=== PATIENT | male | born 1950 | race Caucasian/White ===

== ENCOUNTER → 2016-08-26 | Outpatient (CLI) | payer BC, MEDICARE, OTHER ==
[~2016-08-26] MED LIST: ADVIN25/60 INH; CETI5TAB5 PO; CHOL100027 PO; MELO15TA4 PO; MOME100A INH; MONT1TAB3 PO; MULTLIQ26 PO; OMEP40CA41 PO; RANI300T2 PO; TAMS0.4C38 PO; VYT1020 PO
[2016-08-26 18:16] LABS: BLOOD UREA NITROGEN 19 mg/dl (7-18); BUN/CREATININE RATIO 15.9 (10-20); CALCIUM 9.1 mg/dl (8.5-10.1); CARBON DIOXIDE 30 mmol/L (21-32); CHLORIDE 104 mmol/L (98-107); GLUCOSE 78 mg/dl (70-99); PHOSPHORUS 3.5 mg/dl (2.5-4.9); SODIUM 142 mmol/L (136-145)
[2016-08-27 06:09] LABS: ESTIMATED AVERAGE GLUCOSE 103 mg/dl; HA1C FLAG Normal (Normal)
== END | disposition home or self-care (01) ==
LOC: C.LABMFLN 10:15
PROVIDERS: ATTEND Family Medicine
DX: Z11.59 Encounter for screening for other viral diseases (principal); E11.9 Type 2 diabetes mellitus without complications

== ENCOUNTER → 2017-03-01 | Outpatient (CLI) | payer OTHER ==
[2017-03-01 13:05] LABS: BASO % 0.9 %; BASO ABS # 0.05 K/uL (0-0.2); COMPLETE YES; EOS % 2.1 %; HEMATOCRIT 39.7 % (42-52); IG% 0.4 %; LYMPH % 32.5 %; LYMPH ABS # 1.84 K/uL (1.2-3.4); MEAN CELL VOLUME 89.4 fL (80-100); MEAN CORPUSCULAR HEMOGLOBIN 30.9 pg (25-34); MEAN CORPUSCULAR HGB CONC 34.5 g/dl (32-36); MEAN PLATELET VOLUME 11.3 fL (7.4-10.4); MONO % 12.9 %; NEUT % 51.2 %; PLATELET COUNT 174 K/uL (130-400); RED BLOOD COUNT 4.44 M/uL (4.7-6.1); WHITE BLOOD COUNT 5.67 K/uL (4.8-10.8)
[2017-03-01 13:42] LABS: ALT/SGPT 24 U/L (12-78); AST/SGOT 19 U/L (15-37); BLOOD UREA NITROGEN 17 mg/dl (7-18); BUN/CREATININE RATIO 14.5 (10-20); CALCIUM 8.6 mg/dl (8.5-10.1); CARBON DIOXIDE 28 mmol/L (21-32); CHLORIDE 107 mmol/L (98-107); GLUCOSE 85 mg/dl (70-99); SODIUM 142 mmol/L (136-145)
[2017-03-01 13:50] LABS: ALB/GLOB RATIO 1.2 (0.9-2); ALKALINE PHOSPHATASE 81 U/L (45-117); CHOLESTEROL 162 mg/dl (0-200); HDL CHOLESTEROL 54 mg/dl; LDL CHOLESTEROL CALCULATED 95 mg/dl; PROSTATE SPECIFIC ANTIGEN 0.614 ng/ml (0.000-4.000); TRIGLYCERIDES 65 mg/dl (0-150); VERY LOW DENSITY LIPOPROT CALC 13 mg/dl
[2017-03-01 14:00] LABS: ESTIMATED AVERAGE GLUCOSE 105 mg/dl; HA1C FLAG Normal (Normal)
== END | disposition home or self-care (01) ==
LOC: C.LABMFLN 10:46
PROVIDERS: ATTEND Family Medicine
DX: E11.9 Type 2 diabetes mellitus without complications (principal); N40.0 Benign prostatic hyperplasia without lower urinary tract symptoms; E78.5 Hyperlipidemia, unspecified

== ENCOUNTER → 2017-06-14 | Outpatient (CLI) | payer OTHER ==
[2017-06-14 12:53] LABS: BASO % 0.7 %; BASO ABS # 0.04 K/uL (0-0.2); COMPLETE YES; HEMATOCRIT 41.1 % (42-52); IG% 0.3 %; LYMPH % 27.1 %; LYMPH ABS # 1.63 K/uL (1.2-3.4); MEAN CELL VOLUME 88.2 fL (80-100); MEAN CORPUSCULAR HEMOGLOBIN 29.8 pg (25-34); MEAN CORPUSCULAR HGB CONC 33.8 g/dl (32-36); MEAN PLATELET VOLUME 11.5 fL (7.4-10.4); MONO % 15.8 %; NEUT % 54.1 %; PLATELET COUNT 187 K/uL (130-400); RED BLOOD COUNT 4.66 M/uL (4.7-6.1); WHITE BLOOD COUNT 6.01 K/uL (4.8-10.8)
[2017-06-14 13:09] LABS: ESTIMATED AVERAGE GLUCOSE 103 mg/dl; HA1C FLAG Normal (Normal)
== END | disposition home or self-care (01) ==
LOC: C.LABMFLN 10:50
PROVIDERS: ATTEND Family Medicine
DX: E11.9 Type 2 diabetes mellitus without complications (principal)

== ENCOUNTER → 2017-09-20 | Outpatient (CLI) | payer OTHER ==
[2017-09-20 13:10] LABS: HEMOGLOBIN A1C 5.3 % (4.5-5.6)
== END | disposition home or self-care (01) ==
LOC: C.LABMFLN 10:35
PROVIDERS: ATTEND Family Medicine
DX: E11.9 Type 2 diabetes mellitus without complications (principal)

== ENCOUNTER → 2017-12-26 | Outpatient (CLI) | payer OTHER ==
[~2017-12-26] MED LIST changes: +MELO-84 PO; -MELO15TA4 PO
[2017-12-26 13:30] LABS: HEMOGLOBIN A1C 5.4 % (4.5-5.6)
[2017-12-26 13:44] LABS: ALBUMIN 3.8 gm/dl (3.4-5.0); BLOOD UREA NITROGEN 22 mg/dl (7-18); CALCIUM 8.6 mg/dl (8.5-10.1); CARBON DIOXIDE 27 mmol/L (21-32); GLUCOSE 93 mg/dl (70-99); POTASSIUM 3.9 mmol/L (3.5-5.1); SODIUM 139 mmol/L (136-145)
[2017-12-26 13:47] LABS: CHOLESTEROL 181 mg/dl (0-200); LDL CHOLESTEROL CALCULATED 120 mg/dl; PHOSPHORUS 2.7 mg/dl (2.5-4.9)
== END | disposition home or self-care (01) ==
LOC: C.LABMFLN 10:20
PROVIDERS: ATTEND Family Medicine
DX: E11.9 Type 2 diabetes mellitus without complications (principal); E78.5 Hyperlipidemia, unspecified

== ENCOUNTER 2019-09-26 12:09 | Observation (INO) ==
[2019-09-26] MEDS ORDERED: KETOROLAC TROMETHAMINE 60 MG/2 ML VIAL IM STA (13:13)
[2019-09-26] MEDS ORDERED: LIDOCAINE 5% 1 PATCH TD STA ×2 (13:13→13:16)
[2019-09-26] MEDS ORDERED: KETOROLAC 30 MG/ML VIAL ONE (13:28)
--- NOTE | 2019-09-26 14:24 | XRay Report ---
XR knee LT 3V CLINICAL HISTORY: recent injury, lateral joint line pain COMPARISON: Left knee radiographs September 23, 2019. FINDINGS: There has been interval development of a moderate to large left knee joint effusion. No ac chester fracture is identified. Severe osteoarthritis within the patellofemoral compartment is noted. The re is mild osteophytosis within the medial and lateral compartments. IMPRESSION: 1. Interval development of a moderate to large left knee joint effusion. 2. No acute fracture identified. 3. Severe osteoarthritis within the patellofemoral compartment. ACT 112: Negative or not required by law. Electronically signed by: Quoc Scott M.D. 09/26/2019 2:22 PM
--- NOTE | 2019-09-26 14:25 | XRay Report ---
XR knee RT 3V CLINICAL HISTORY: anterior joint line pain COMPARISON: None FINDINGS: A large right knee joint effusion is noted without evidence for lipohemarthrosis. No acute fracture is identified. There is severe osteoarthritis within the patellofemoral compartment of the right knee. No osseous lesion is noted. IMPRESSION: 1. No acute fracture identified. 2. Large right knee joint effusion. 3. Severe osteoarthritis within the patellofemoral compartment. ACT 112: Negative or not required by law. Electronically signed by: Quoc Scott M.D. 09/26/2019 2:24 PM
--- NOTE | 2019-09-26 16:11 | Emergency Department Note ---
Entered by Asia Jacobson acting as a scribe for History of Present Illness General Chief complaint: Knee Injury/Pain Stated complaint: knee pain Time Seen by Provider: 09/26/19 12:55 Source: patient History of Present Illness Provider complaint: Knee Injury/Pain Onset (ago): day(s) 1 Location: lower extremity (Knee), left and right Maximum Pain Intensity: 3 Relieved By: + none Exacerbated By: + movement Associated symptoms: no cough and no fever/chills The patient is a 69 year old male w/ PMHx of sinus surgery, ventral hernia repair, cholecystectomy, tonsillectomy, hyperlipidemia, diabetes, asthma, lumbar discectomy, and appendectomy who presents to the ED w/ CC of bilateral knee injury/pain beginning yesterday. The patient states that his pain is exacerbated by movement and not relieved by anything specific. The patient denies experiencing a cough or fever/chills. The patient notes that his knee was sore 1 week ago and carrying laundry down the stairs and getting up out of his recliner caused issues with his knees. Home Medications Home Medications Medication Instructions Recorded Confirmed Type fexofenadine 180 mg tablet 180 mg PO QAM 08/27/19 09/26/19 History acetaminophen [Tylenol Extra 500 mg PO Q6H PRN 09/26/19 09/26/19 History Strength] ascorbic acid (vitamin C) 250 mg PO QAM 09/26/19 09/26/19 History cholecalciferol (vitamin D3) 2,000 unit PO QAM 09/26/19 09/26/19 History [Vitamin D3] cyanocobalamin (vitamin B-12) 1,000 mcg PO QAM 09/26/19 09/26/19 History montelukast 10 mg PO QAM 09/26/19 09/26/19 History multivitamin [Multiple Vitamins] 1 tab PO QAM 09/26/19 09/26/19 History omeprazole 20 mg PO QAM 09/26/19 09/26/19 History tamsulosin 0.4 mg PO QAM 09/26/19 09/26/19 History Allergies Allergy/AdvReac Type Severity Reaction Status Date / Time acetaminophen Allergy Unknown unkn Verified 09/26/19 14:16 carisoprodol Allergy Unknown UNKN Verified 09/26/19 14:16 codeine Allergy Unknown unkn Verified 09/26/19 14:16 erythromycin base Allergy Unknown unkn Verified 09/26/19 14:16 hydrocodone Allergy Unknown unkn Verified 09/26/19 14:16 levalbuterol Allergy Unknown UNKN Verified 09/26/19 14:16 meperidine Allergy Unknown UNKN Verified 09/26/19 14:16 Penicillins Allergy Unknown unkn Verified 09/26/19 14:16 pentazocine Allergy Unknown unkn Verified 09/26/19 14:16 tramadol [From Ultracet] Allergy Verified 09/26/19 14:16 Past Med/Surg History Medical History (Updated 09/27/19 @ 04:26 by Tom Blackburn MD) Acid reflux disease (Chronic) Adenomatous colon polyp (Chronic) Allergic rhinitis (Chronic) Asthma (Chronic) Benign localized hyperplasia of prostate without urinary obstruction (Chronic) Diabetes mellitus (Chronic) Hyperlipidemia (Chronic) Kidney stones (Chronic) Obstructive sleep apnea (Chronic) Posterior vitreous detachment Vitamin B12 deficiency Surgical History H/O lumbar discectomy (Chronic) H/O nephrostomy (Chronic) H/O sinus surgery (Chronic) H/O ventral hernia repair (Chronic) S/P appendectomy (Chronic) S/P cholecystectomy (Chronic) S/P colonoscopy (Chronic) S/P tonsillectomy (Chronic) Status post vasectomy (Chronic) Family History Mother Hypertension Hypercholesteremia Melanoma Stroke Sister Hypertension Melanoma Father Lung cancer Melanoma Malignant neoplasm of thyroid gland Social History Preferred Language: Telugu Communication Ability: Effective Communication Ability Comment: patient only has the ability to hear out of his right ear Visual Impairment: Limited Hearing Ability: Hard of Hearing Telephone Service Adviser Required: No Beliefs That Will Affect Care: None marital status: Current Living Situation: Spouse current occupational status: retired Other Information That Helps Us Care for You: No Feels Safe at Home: Yes Safety Concerns: Feels Safe At This Time Smoking Status: Never smoker Do You Dip or Chew Tobacco: No ; Second Hand Exposure: No ; Tobacco Cessation Education Requested by Patient: No Hx Alcohol Use: No Hx Substance Use: No Childhood Exposure to Second-Hand Smoke: Yes caffeine: Yes (coffee, diet soda) Dental Care, Regularly: No Physical Activity Frequency: Daily Seatbelt Use: always Sunscreen Use: No Do you think of yourself as: straight/heterosexual Review of Systems See HPI for pertinent positives & negatives. and A total of 6 systems reviewed and were otherwise negative Physical Exam Vital Signs Vital Signs - 24 hr 09/26/19 13:36 09/26/19 17:00 09/26/19 18:49 Pulse Rate [Finger] 78 81 74 Respiratory Rate 20 18 17 Blood Pressure [Right Arm] 129/74 125/79 146/80 H Blood Pressure Mean [Right Arm] 92 94 102 Pulse Oximetry 96 97 97 Oxygen Delivery Method Room Air Room Air Room Air GENERAL: Well appearing, well nourished, NAD, non-toxic. EYE EXAM: Normal conjunctiva. PERRL, no anisocoria and EOM's grossly intact w/o pain. OROPHARYNX: Moist mucous membranes. Grossly normal dentition. NECK: Supple, no nuchal rigidity, no adenopathy, non-tender. No signs of meningismus. LUNGS: Clear to auscultation. Normal chest wall mechanics. HEART: NSR, no MRG. ABDOMEN: Abdomen soft, non-tender, normo-active bowel sounds, no masses, no rebound or guarding. BACK: No CVA TTP. SKIN: No rashes and no bruising. UPPER EXTREMITIES: Upper extremities are grossly normal. LOWER EXTREMITIES: No pitting edema. No calf pain. Pain with varus stress for left knee. Pain with valgus stress for right knee. Possible Matt positive for left knee. Bilateral knee effusions. Decreased ROM secondary to pain. NVI distally bilaterally. Good pedal pulses. NEURO EXAM: A&O x3, cranial nerves II-XII grossly intact, normal speech, moves all 4 extremities on command w/o issue. Course Course 1302: Past medical records reviewed. The patient was evaluated in room A12B. A complete history and physical exam was performed. 1304: Continuous Cardiac Monitoring: An order was placed for continuous cardiac monitoring. The monitor shows a rate of 78 with sinus rhythm. 1620: I spoke with Dr. Montez- Orthopedic Surgery about the patient's case and he said to have the patient call first thing tomorrow and he should be able to see the patient. 1657: I reevaluated the patient and he does not think he can go home and [facility] did not accept him. 1708: I spoke with Dr. Vega- Hospitalist about the patient's case and he will accept the patient for further evaluation. 1709: I spoke with Dr. Montez- Orthopedic Surgery about the patient's treatment plan and he will see him in the office and provide the patient with rehab facility recommendations. 1838: I reevaluated the patient and updated him. Administered Medications Ascorbic Acid (Vitamin C) 250 mg PO QAM [facility] Stop: 10/27/19 08:59 Last Admin: 09/27/19 08:46 Dose: Not Given Documented by: [id number] Cyanocobalamin (Vitamin B-12) 1,000 mcg PO QAM [facility] Stop: 10/27/19 08:59 Last Admin: 09/27/19 08:46 Dose: Not Given Documented by: [id number] Fexofenadine HCl (Michelle) 180 mg PO QAM [facility] Stop: 10/27/19 08:59 Last Admin: 09/27/19 08:45 Dose: Not Given Documented by: [id number] Lidocaine (Lidoderm 5%) 1 patch TD DAILY [facility] Stop: 10/27/19 08:59 Last Admin: 09/27/19 08:48 Dose: 1 patch Documented by: [id number] Miscellaneous (Remove Lidoderm Patch) 1 ea N/A DAILY@2100 [facility] Stop: 10/26/19 20:59 Last Admin: 09/26/19 23:30 Dose: 1 ea Documented by: [id number] Montelukast Sodium (Singulair) 10 mg PO QAM [facility] Stop: 10/27/19 08:59 Last Admin: 09/27/19 08:46 Dose: Not Given Documented by: [id number] Multivitamins (Multivitamin Tab) 1 tab PO QAM [facility] Stop: 10/27/19 08:59 Last Admin: 09/27/19 08:46 Dose: Not Given Documented by: [id number] Pantoprazole Sodium (Protonix) 40 mg PO QAM [facility] Stop: 10/27/19 08:59 Last Admin: 09/27/19 08:46 Dose: Not Given Documented by: [id number] Tamsulosin HCl (Flomax) 0.4 mg PO QAM [facility] Stop: 10/27/19 08:59 Last Admin: 09/27/19 08:46 Dose: Not Given Documented by: [id number] Tramadol HCl (Ultram) 50 mg PO Q4H PRN PRN Reason: Moderate Pain Stop: 10/26/19 20:53 Last Admin: 09/26/19 23:37 Dose: 50 mg Documented by: [id number] Vitamin D (Vitamin D3) 2,000 units PO QAM [facility] Stop: 10/27/19 08:59 Last Admin: 09/27/19 08:46 Dose: Not Given Documented by: [id number] Discontinued Medications Acetaminophen (Tylenol) 1,000 mg PO NOW STA Stop: 09/26/19 18:37 Last Admin: 09/26/19 18:48 Dose: 1,000 mg Documented by: [id number] Sodium Chloride (Nss) 500 mls @ 125 mls/hr IV .Q4H [facility] Stop: 10/26/19 18:44 Last Admin: 09/27/19 01:56 Dose: Not Given Documented by: [id number] Infusion: 09/26/19 21:43 Dose: 0 mls/hr Documented by: [id number] Admin: 09/26/19 18:48 Dose: 125 mls/hr Documented by: [id number] Ketorolac Tromethamine (Toradol) 30 mg IM NOW STA Stop: 09/26/19 13:14 Last Admin: 09/26/19 13:32 Dose: Not Given Documented by: [id number] Ketorolac Tromethamine (Toradol) Confirm Administered Dose 30 mg .ROUTE .STK-MED ONE Stop: 09/26/19 13:29 Last Admin: 09/26/19 13:31 Dose: 30 mg Documented by: [id number] Ketorolac Tromethamine (Toradol) 30 mg IV NOW STA Stop: 09/26/19 18:35 Last Admin: 09/26/19 18:48 Dose: 30 mg Documented by: [id number] Lidocaine (Lidoderm 5%) 1 patch TD NOW STA Stop: 09/26/19 13:14 Last Admin: 09/26/19 13:31 Dose: 1 patch Documented by: [id number] Lidocaine (Lidoderm 5%) 1 patch TD NOW STA Stop: 09/26/19 13:17 Last Admin: 09/26/19 13:32 Dose: 1 patch Documented by: [id number] Miscellaneous (Remove Lidoderm Patch) 1 ea N/A DAILY@2100 [facility] Stop: 10/26/19 20:59 Last Admin: 09/27/19 01:56 Dose: Not Given Documented by: [id number] Medical Decision Making Differential Diagnosis Differential diagnoses include but are not limited to: fracture, dislocation, contusion, strain, ligamentous injury, tendon rupture, and septic joint. Medical Records Attestation: I reviewed the patient's medical records. Home Medications Current Medication List: was personally reviewed by me Imaging Data Radiologist's Impression: Radiology results as stated below per my review and the radiologist's interpretation: XR knee LT 3V CLINICAL HISTORY: recent injury, lateral joint line pain COMPARISON: Left knee radiographs September 23, 2019. FINDINGS: There has been interval development of a moderate to large left knee joint effusion. No acute fracture is identified. Severe osteoarthritis within the patellofemoral compartment is noted. There is mild osteophytosis within the medial and lateral compartments. IMPRESSION: 1. Interval development of a moderate to large left knee joint effusion. 2. No acute fracture identified. 3. Severe osteoarthritis within the patellofemoral compartment. ACT 112: Negative or not required by law. Electronically signed by: Quoc Scott M.D. 09/26/2019 2:22 PM XR knee RT 3V CLINICAL HISTORY: anterior joint line pain COMPARISON: None FINDINGS: A large right knee joint effusion is noted without evidence for lipohemarthrosis. No acute fracture is identified. There is severe osteoarthritis within the patellofemoral compartment of the right knee. No osseous lesion is noted. IMPRESSION: 1. No acute fracture identified. 2. Large right knee joint effusion. 3. Severe osteoarthritis within the patellofemoral compartment. ACT 112: Negative or not required by law. Electronically signed by: Quco Scott M.D. 09/26/2019 2:24 PM Blood Pressure Blood Pressure Findings: Elevated blood pressure Blood Pressure Disposition: further management by hospitalist THAO Narrative The patient is a 69 year old male w/ PMHx of sinus surgery, ventral hernia repair, cholecystectomy, tonsillectomy, hyperlipidemia, diabetes, asthma, lumbar discectomy, and appendectomy who presents to the ED w/ CC of bilateral knee injury/pain beginning yesterday. Patient was seen in eval at the bedside. The patient presents with concern for knee pain. The patient recently did have a knee injury earlier this week which may have precipitated another knee injury as the patient was having some limitations with bending his knee and felt as though he did not have as much support while he was using a knee immobilizer. The patient does have bilateral knee effusions. After physical exam the patient may have ligamentous and/or meniscal injuries. The patient was offered a knee immobilizer but she refused. Patient does have numerous medication allergies so he was only able to take ibuprofen and Tylenol. Patient has taken Tylenol in the past contrary to the patient's acetaminophen listed allergy. The patient was not suitable for [facility]. I did talk to orthopedics initially was willing to see the patient the morning. Patient's family was concerned that the patient may not be suitable for home as the patient is unable to walk well. Patient does not have any vascular injury based on exam as the patient has good pedal pulses. No evidence of any fracture or dislocation but the patient does have any effusions. Did speak with the on-call hospitalist who agreed to further evaluate treat the patient. Impression & Plan Acute bilateral knee pain, Bilateral knee effusions, Fall, Injury of meniscus of left knee Discharge Plan Visit Data *Final* Discharge Date/Time: 09/26/19 21:51 Chief Complaint: Knee Injury/Pain Stated Complaint: knee pain ED Provider: Alvarado Ulrich Discharge Problem: Acute bilateral knee pain, Bilateral knee effusions, Fall, Injury of meniscus of left knee Patient Disposition: Admitted As Inpatient Discharge Instructions Interventions: ED Discharge Assessment Last Done: 09/26/19 21:51 Discharge Problem: Fall Qualifiers: Encounter type: initial encounter Qualified Code(s): W19.XXXA - Unspecified fall, initial encounter Injury of meniscus of left knee Qualifiers: Encounter type: initial encounter Qualified Code(s): S83.8X2A - Sprain of other specified parts of left knee, initial encounter The scribe's documentation has been prepared under my direction and personally reviewed by me in its entirety. I confirm that the note above accurately reflects all work, treatment, procedures, and medical decision making performed by me.
[2019-09-26] MEDS ORDERED: KETOROLAC 30 MG/ML VIAL IV STA (18:34)
[2019-09-26] MEDS ORDERED: ACETAMINOPHEN 500 MG TAB PO STA (18:36)
[2019-09-26] MEDS: SODIUM CHLORIDE 0.9% 500 ML IV SCH (18:48)
[2019-09-26] MEDS ORDERED: TRAMADOL HCL 50 MG TABLET PO PRN (20:54)
--- NOTE | 2019-09-26 20:56 | History & Physical Report ---
Date of Service September 26, 2019 Assessment & Plan (1) Acute bilateral knee pain: Acute bilateral knee pain/bilateral knee effusions- Patient unable to walk due to severity of pain and swelling. No direct impact, sustained injury more from a twisting motion. Observation to medical surgical floor. Consult orthopedics. Consult PT. Received Toradol 30 mg IV x2 while in ED. tramadol 50 mg p.o. every 4 hours PRN moderate pain. Patient is allergic to acetaminophen and codeine. Was seen by [facility] while in the ED, and felt that the patient needed a more specific diagnosis to potentially qualify for an inpatient rehab stay. Present on Admission?: Yes (2) Bilateral knee effusions: See above Present on Admission?: Yes (3) Allergic rhinitis: Continue montelukast and fexofenadine Present on Admission?: Yes (4) Vitamin B12 deficiency: Continue cyanocobalamin 1000 mcg daily Present on Admission?: Yes History of Present Illness Chief Complaint: The patient initially presented to the ED on 09/23 for left knee pain laterally that occurred while chopping wood, went home, and earlier in the day today was chopping wood again, and injured his right knee, feeling a sharp pain medially. Primary Care Provider: Savanna Meza MD The patient is a 69-year-old male with a past medical history including hyperlipidemia, obstructive sleep apnea, BPH, asthma, allergic rhinitis, GERD, kidney stones, status post lumbar discectomy. He presents to the emergency department with persistent left knee pain from 09/23, and now new right knee pain sustained earlier in the day today, both occur with chopping wood. His pain is severe to the point that he is not able to walk, even with a borrowed walker at home. Allergies Allergy/AdvReac Type Severity Reaction Status Date / Time acetaminophen Allergy Unknown unkn Verified 09/26/19 14:16 carisoprodol Allergy Unknown UNKN Verified 09/26/19 14:16 codeine Allergy Unknown unkn Verified 09/26/19 14:16 erythromycin base Allergy Unknown unkn Verified 09/26/19 14:16 hydrocodone Allergy Unknown unkn Verified 09/26/19 14:16 levalbuterol Allergy Unknown UNKN Verified 09/26/19 14:16 meperidine Allergy Unknown UNKN Verified 09/26/19 14:16 Penicillins Allergy Unknown unkn Verified 09/26/19 14:16 pentazocine Allergy Unknown unkn Verified 09/26/19 14:16 tramadol [From Ultracet] Allergy Verified 09/26/19 14:16 Home Medications Home Medications Medication Instructions Recorded Confirmed Type fexofenadine 180 mg tablet 180 mg PO QAM 08/27/19 09/26/19 History acetaminophen [Tylenol Extra 500 mg PO Q6H PRN 09/26/19 09/26/19 History Strength] ascorbic acid (vitamin C) 250 mg PO QAM 09/26/19 09/26/19 History cholecalciferol (vitamin D3) 2,000 unit PO QAM 09/26/19 09/26/19 History [Vitamin D3] cyanocobalamin (vitamin B-12) 1,000 mcg PO QAM 09/26/19 09/26/19 History montelukast 10 mg PO QAM 09/26/19 09/26/19 History multivitamin [Multiple Vitamins] 1 tab PO QAM 09/26/19 09/26/19 History omeprazole 20 mg PO QAM 09/26/19 09/26/19 History tamsulosin 0.4 mg PO QAM 09/26/19 09/26/19 History Past Med/Surg History Medical History Acid reflux disease (Chronic) Adenomatous colon polyp (Chronic) Allergic rhinitis (Chronic) Asthma (Chronic) Benign localized hyperplasia of prostate without urinary obstruction (Chronic) Diabetes mellitus (Chronic) Hyperlipidemia (Chronic) Kidney stones (Chronic) Obstructive sleep apnea (Chronic) Posterior vitreous detachment Surgical History H/O lumbar discectomy (Chronic) H/O nephrostomy (Chronic) H/O sinus surgery (Chronic) H/O ventral hernia repair (Chronic) S/P appendectomy (Chronic) S/P cholecystectomy (Chronic) S/P colonoscopy (Chronic) S/P tonsillectomy (Chronic) Status post vasectomy (Chronic) Family History Mother Hypertension Hypercholesteremia Melanoma Stroke Sister Hypertension Melanoma Father Lung cancer Melanoma Malignant neoplasm of thyroid gland Social History Preferred Language: Citizen Of The [place] Communication Ability: Effective Communication Ability Comment: patient only has the ability to hear out of his right ear Visual Impairment: Limited Hearing Ability: Hard of Hearing Clinical Research Nurse Required: No Beliefs That Will Affect Care: None marital status: Current Living Situation: Spouse current occupational status: retired Other Information That Helps Us Care for You: No Feels Safe at Home: Yes Safety Concerns: Feels Safe At This Time Smoking Status: Never smoker Do You Dip or Chew Tobacco: No ; Second Hand Exposure: No ; Tobacco Cessation Education Requested by Patient: No Hx Alcohol Use: No Hx Substance Use: No Childhood Exposure to Second-Hand Smoke: Yes caffeine: Yes (coffee, diet soda) Dental Care, Regularly: No Physical Activity Frequency: Daily Seatbelt Use: always Sunscreen Use: No Do you think of yourself as: straight/heterosexual Review of Systems Review of Systems: The patient denies chest pain, palpitations, shortness of breath, dyspnea on exertion, cough, sore throat, fevers, chills, sweats, weight change, fatigue, nausea, vomiting, diarrhea , constipation, abdominal pain, pelvic pain, blood in urine or stool, dysuria, urinary frequency or urgency, lightheadedness, dizziness, headache, memory loss, loss of consciousness, rash, abnormal bruising or bleeding, imbalance, focal or generalized weakness, numbness or tingling in arms, generalized arthralgias or myalgias, neck pain, or night sweats. The review of systems is otherwise negative other than for that already noted above, and at least 10 systems have been reviewed. Physical Exam Physical Exam: The patient is awake, alert and oriented 3, well developed and well nourished, normocephalic and atraumatic, lying in bed and in no acute distress. HEENT--PERRL, EOMI, mucous membranes and oropharynx normal. Neck--supple. No JVD. No bruits. Thyroid normal, trachea midline, no adenopathy. Heart--normal S1 and S2. No murmurs, rubs or gallops. Lungs--clear bilaterally, no respiratory distress, no accessory muscle use. Abdomen--normal bowel sounds and soft. Nontender. Nondistended. Extremities--no cyanosis or clubbing. No edema. There are good distal pulses b/l. Dermatologic--normal skin turgor, normal color, no abnormal lymph nodes, no rash. Neurologic--cranial nerves II through XII grossly intact. Rheumatologic--bilateral knee joint effusions, right greater than left, with decreased range of motion bilaterally Psychiatric--normal affect. Results & Data Vital Signs (Past 12 Hours) Vital Signs Temp Pulse Pulse Resp BP BP Pulse Ox 09/26/19 18:49 74 17 146/80 H 97 09/26/19 17:00 81 18 125/79 97 09/26/19 13:36 78 20 129/74 96 09/26/19 12:20 98.1 F 84 20 149/84 H 97 Laboratory Results None Code Status & VTE Plan Code Status Full code VTE Prophylaxis Plan VTE Prophylaxis will be ordered: Yes PG Care Time/CCT Total # of Minutes Spent Total Time Spent with Patient: Total time spent is greater than 50% in coordination of care (as documented) at patient's floor/unit and/or counseling patient: Coding Level of Care Code 21613 OBS Care - Level 3 Diagnoses Acute bilateral knee pain M25.561; M25.562 Bilateral knee effusions M25.461; M25.462 Allergic rhinitis J30.9 Vitamin B12 deficiency E53.8
[2019-09-26] MEDS ORDERED: ONDANSETRON INJ 2 MG/ML 2 ML VIAL IV PRN (23:07)
[2019-09-27] MEDS: SODIUM CHLORIDE 0.9% 500 ML IV SCH (01:56)
[2019-09-27] MEDS: FEXOFENADINE HCL 180 MG TAB PO SCH (08:45)
[2019-09-27] MEDS: CHOLECALCIFEROL 1,000 UNITS 25 MCG TAB PO SCH (08:46)
[2019-09-27] MEDS: TAMSULOSIN HCL 0.4 MG CAP PO SCH (08:46)
[2019-09-27] MEDS: PANTOprazole 40 MG TAB PO SCH (08:46)
[2019-09-27] MEDS: ASCORBIC ACID 500 MG TAB PO SCH (08:46)
[2019-09-27] MEDS: MONTELUKAST SODIUM 10 MG TABLET PO SCH (08:46)
[2019-09-27] MEDS: CYANOCOBALAMIN 500 MCG TABLET (VITAMIN B-12) PO SCH (08:46)
[2019-09-27] MEDS: MULTIVITAMIN TAB PO SCH (08:46)
[2019-09-27] MEDS: LIDOCAINE 5% 1 PATCH TD SCH (08:48)
[2019-09-27] MEDS ORDERED: Nursing to Pharmacy Communication ONE ×2 (12:01→12:19)
--- NOTE | 2019-09-27 12:41 | Orthopedic Consultation ---
Date of Consultation September 27, 2019 Assessment & Plan (1) Bilateral knee effusions: Continue lidocaine patch for each knee. Minimize WB on each LE until after MRI's are complete. MRI bilateral knees to r/o occult fx. At this time, unable to assess hemarthrosis vs. serous effusion. If no fx's noted, consider bilateral knee aspirations and corticosteroid injections. Plan was discussed with the patient. Will follow with patient after imaging. Patient may begin diet at this time, no surgical tx at this time. (2) Acute bilateral knee pain: (3) Osteoarthritis of knees, bilateral: History of Present Illness Reason for Consultation: bilateral knee pain and swelling Attending Physician: Parvez Goetz MD History of Present Illness This is a patient who sustained a left knee injury at his home on 09.23.2019. He had a twisting injury where he nearly fell. He had significant pain within the knee and came to [facility] ER. X-rays were negative for fracture and he was given a knee immobilizer and discharged home. 2 days later, on 09.25.2019, he was going down steps and sustained an injury to the right knee where he had a fall into a seated position on stairs. The right knee became more painful than the left and both knees were extremely swollen. He came to [facility] ER yesterday, 09.26.2019, for evaluation and he was admitted secondary to pain, knee effusions, and gait abnormality. Allergies Allergy/AdvReac Type Severity Reaction Status Date / Time acetaminophen Allergy Unknown unkn Verified 09/26/19 14:16 carisoprodol Allergy Unknown UNKN Verified 09/26/19 14:16 codeine Allergy Unknown unkn Verified 09/26/19 14:16 erythromycin base Allergy Unknown unkn Verified 09/26/19 14:16 hydrocodone Allergy Unknown unkn Verified 09/26/19 14:16 levalbuterol Allergy Unknown UNKN Verified 09/26/19 14:16 meperidine Allergy Unknown UNKN Verified 09/26/19 14:16 Penicillins Allergy Unknown unkn Verified 09/26/19 14:16 pentazocine Allergy Unknown unkn Verified 09/26/19 14:16 tramadol [From Ultracet] Allergy Verified 09/26/19 14:16 Home Medications Home Medications Medication Instructions Recorded Confirmed Type fexofenadine 180 mg tablet 180 mg PO QAM 08/27/19 09/26/19 History acetaminophen [Tylenol Extra 500 mg PO Q6H PRN 09/26/19 09/26/19 History Strength] ascorbic acid (vitamin C) 250 mg PO QAM 09/26/19 09/26/19 History cholecalciferol (vitamin D3) 2,000 unit PO QAM 09/26/19 09/26/19 History [Vitamin D3] cyanocobalamin (vitamin B-12) 1,000 mcg PO QAM 09/26/19 09/26/19 History montelukast 10 mg PO QAM 09/26/19 09/26/19 History multivitamin [Multiple Vitamins] 1 tab PO QAM 09/26/19 09/26/19 History omeprazole 20 mg PO QAM 09/26/19 09/26/19 History tamsulosin 0.4 mg PO QAM 09/26/19 09/26/19 History Patient History Medical History Acid reflux disease (Chronic) Adenomatous colon polyp (Chronic) Allergic rhinitis (Chronic) Asthma (Chronic) Benign localized hyperplasia of prostate without urinary obstruction (Chronic) Diabetes mellitus (Chronic) Hyperlipidemia (Chronic) Kidney stones (Chronic) Obstructive sleep apnea (Chronic) Posterior vitreous detachment Vitamin B12 deficiency Surgical History H/O lumbar discectomy (Chronic) H/O nephrostomy (Chronic) H/O sinus surgery (Chronic) H/O ventral hernia repair (Chronic) S/P appendectomy (Chronic) S/P cholecystectomy (Chronic) S/P colonoscopy (Chronic) S/P tonsillectomy (Chronic) Status post vasectomy (Chronic) Family History Mother Hypertension Hypercholesteremia Melanoma Stroke Sister Hypertension Melanoma Father Lung cancer Melanoma Malignant neoplasm of thyroid gland Social History Preferred Language: Lithuanian Communication Ability: Effective Communication Ability Comment: patient only has the ability to hear out of his right ear Visual Impairment: Limited Hearing Ability: Hard of Hearing Health Diagnostics Teacher Required: No Beliefs That Will Affect Care: None marital status: Current Living Situation: Spouse current occupational status: retired Other Information That Helps Us Care for You: No Feels Safe at Home: Yes Safety Concerns: Feels Safe At This Time Smoking Status: Never smoker Do You Dip or Chew Tobacco: No ; Second Hand Exp osure: No ; Tobacco Cessation Education Requested by Patient: No Hx Alcohol Use: No Hx Substance Use: No Childhood Exposure to Second-Hand Smoke: Yes caffeine: Yes (coffee, diet soda) Dental Care, Regularly: No Physical Activity Frequency: Daily Seatbelt Use: always Sunscreen Use: No Do you think of yourself as: straight/heterosexual Physical Exam Constitutional: WD/WN, vitals as above ENMT: external ear and nose normal, oropharynx normal Neck: trachea midline Musculoskeletal: Gait: + antalgic gait (bilateral LE) Knee: + effusion (bilateral moderate to severe), + limited ROM of knee (Bilateral -3 degrees extension to 90 degrees flexion) and + joint line tenderness (bilateral diffuse); no deformity, no skin erythema, no ecchymosis, no valgus laxity and no varus laxity Skin: no rashes, warm and dry Neurologic: normal touch/pain/proprioception Psychiatric: A+Ox3, euthymic affect Results & Data ([facility]) Vital Signs (Past 12 Hours) Vital Signs Temp Pulse Resp BP Pulse Ox 09/27/19 07:35 37.1 C 76 18 134/78 94 Diagnostic Findings XR knee RT 3V CLINICAL HISTORY: anterior joint line pain COMPARISON: None FINDINGS: A large right knee joint effusion is noted without evidence for lipohemarthrosis. No acute fracture is identified. There is severe osteoarthritis within the patellofemoral compartment of the right knee. No osseous lesion is noted. IMPRESSION: 1. No acute fracture identified. 2. Large right knee joint effusion. 3. Severe osteoarthritis within the patellofemoral compartment. XR knee LT 3V CLINICAL HISTORY: recent injury, lateral joint line pain COMPARISON: Left knee radiographs September 23, 2019. FINDINGS: There has been interval development of a moderate to large left knee joint effusion. No acute fracture is identified. Severe osteoarthritis within the patellofemoral compartment is noted. There is mild osteophytosis within the medial and lateral compartments. IMPRESSION: 1. Interval development of a moderate to large left knee joint effusion. 2. No acute fracture identified. 3. Severe osteoarthritis within the patellofemoral compartment.
--- NOTE | 2019-09-27 12:47 | Hospitalist Progress Note ---
Date of Service September 27, 2019 Assessment & Plan (1) Acute bilateral knee pain: Acute bilateral knee pain/bilateral knee effusions- Patient unable to walk due to severity of pain and swelling. No direct impact, sustained injury more from a twisting motion. Consulted ortho - appreciate input Consulted PT. Continue pain control Was seen by [facility] while in the ED, and felt that the patient needed a more specific diagnosis to potentially qualify for an inpatient rehab stay. (2) Bilateral knee effusions: See above (3) Allergic rhinitis: Continue montelukast and fexofenadine (4) Vitamin B12 deficiency: Continue cyanocobalamin 1000 mcg daily Subjective Mr. Galo knee pain is being well controlled today. He continues to have swelling in both knees ROS Constitutional: no chills, aches, sweats or fever Respiratory: no sob,cough, sputum, or wheezing Cardiac: no chest pain, palpitations, edema, orthopnea or lightheadedness GI: no abdominal pain, nausea, vomiting, diarrhea or constipation : no dysuria or hesitancy Extremities: see HPI Skin: no rash All other systems reviewed and negative Physical Exam Physical Exam: General: no distress Eyes: normal inspection, PERLL Respiratory: chest non tender, clear to auscultation, normal breath sounds, no respiratory distress, no accessory muscle use Cardiac: regular rate and rhythm, no rub or gallop, no murmur, no edema, no jvd GI/: active bowel sounds, no abd pain or tenderness, soft, non distended Extremities: normal range of motion, normal strength, non tender Neuro/Psych: alert and oriented x 3, normal mood and affect Skin: normal color, dry Results & Data ([facility]) Vital Signs (Past 12 Hours) Vital Signs Temp Pulse Resp BP Pulse Ox 09/27/19 07:35 37.1 C 76 18 134/78 94 PG Care Time/CCT Total # of Minutes Spent Total Time Spent with Patient: Total time spent is greater than 50% in coordination of care (as documented) at patient's floor/unit and/or counseling patient: Coding Level of Care Code 26899 Subseq Hosp Care Lvl 2 Diagnoses Acute bilateral knee pain M25.561; M25.562 Bilateral knee effusions M25.461; M25.462 Allergic rhinitis J30.9 Vitamin B12 deficiency E53.8
--- NOTE | 2019-09-27 21:04 | Magnetic Resonance Report ---
MRI OF THE RIGHT KNEE CLINICAL HISTORY: Right knee pain. Effusion. COMPARISON STUDY: Radiographs of the right knee dated 09/26/2019. TECHNIQUE: MRI of the right knee was performed utilizing proton density, T1, and T2-weighted sequence s in the axial, sagittal, coronal planes. IV contrast was not administered for this examination. FINDINGS: Menisci: Increased signal within the posterior horn of both the medial and lateral meniscus could rep resent mucoid degeneration versus intrasubstance tearing. Ligaments: The anterior and posterior cruciate ligaments are intact. There is evidence of grade 1 inj ury of the medial collateral alignment. This may be chronic. There is extensive fluid identified jos g the iliotibial band with surrounding soft tissue edema. There has also likely been age indeterminan t tearing of the fibular collateral ligament. Extensor mechanism: The extensor mechanism is intact. Hoffa's fat pad is normal in appearance. Articular cartilage and bone: There is no MRI evidence of fracture. There is severe chondromalacia pa tella, with extensive and near complete cartilage loss along both the medial and lateral patellar fac et. There is mild associated reactive marrow edema. There is also near complete cartilage loss along the lateral femoral trochlea. There are numerous foci of greater than 50% fissuring of the articular cartilage in both the medial and lateral compartments. There is bony spurring and cartilaginous irreg ularity along the medial aspect of the medial femoral condyle. No full-thickness cartilage loss is id entified in the medial and lateral compartments. Joint effusion: There is a large joint effusion. Soft tissues: The musculature surrounding the knee joint is normal in bulk and signal intensity. A po pliteal cyst measures up to 5 cm. Soft tissue edema and fluid seen tracking inferiorly along the aby rocnemius musculature suggests rupture. IMPRESSION: 1. Large joint effusion. 2. Large popliteal cyst with evidence of rupture. 3. Severe chondromalacia patella as above with associated reactive marrow edema. 4. Milder arthritic change is seen in the medial and lateral compartments. 5. Suspect age indeterminant grade 1 injury of the medial collateral ligament as well as chronic inju ry of the fibular collateral ligament. 6. Fluid and edema are present along the iliotibial band. This is nonspecific and may be related to s urrounding soft tissue edema. Iliotibial band syndrome of impossible to exclude. 7. There is increased signal within the posterior horns of the menisci. This could represent intrasub stance tearing versus mucoid degeneration. 8. The cruciate ligaments are intact. 9. Additional findings as above. ACT 112: Negative or not required by law. Electronically signed by: Ray Giordano M.D. 09/27/2019 9:03 PM
--- NOTE | 2019-09-27 21:18 | Magnetic Resonance Report ---
MRI OF THE LEFT KNEE CLINICAL HISTORY: Left knee pain. COMPARISON STUDY: Radiographs of left knee dated 09/26/2019. TECHNIQUE: MRI of the left knee was performed utilizing proton density, T1, and T2-weighted sequences in the axial, sagittal, coronal planes. IV contrast was not administered for this examination. FINDINGS: Menisci: There is increased signal within the body and posterior horn of the medial meniscus, likely representing intrasubstance tearing. There is an oblique tear involving the body of the lateral menis cus.. Ligaments: The anterior cruciate ligament is intact. There is thickening and increased signal within the posterior cruciate ligament, which may age indeterminant remote injury. The fibers are intact. Esparza spect chronic grade 1 injury of the medial collateral ligament. The lateral collateral ligament compl ex appears intact. There is fluid seen tracking along the iliotibial band with surrounding soft tissu e edema. Extensor mechanism: The extensor mechanism is intact. Hoffa's fat pad is normal in appearance. Articular cartilage and bone: There is no definite MRI evidence of fracture. There is severe chondrom alacia patella, with extensive full thickness cartilage loss along the lateral patellar facet and mil mela loss along the medial facet with associated reactive marrow edema. There is also extensive cartil age loss along the lateral femoral trochlea with associated marrow edema. Marginal osteophytes are no gustavo. There is mild thinning and fissuring of the articular cartilage along the weightbearing surface of the medial and lateral compartment. Marrow edema is noted within the tibial spine and posterior ti bial plateau. Joint effusion: There is a moderate to large joint effusion. Soft tissues: There is significant edema within the popliteal fossa and around the knee joint. The mu sculature surrounding the knee joint is normal in bulk and signal intensity. A large popliteal cyst m easures up to 5 cm. Mild soft tissue tissue edema is noted in the upper calf posteriorly with trace f luid tracking along the gastrocnemius musculature. IMPRESSION: 1. Moderate to large joint effusion. 2. Popliteal cyst. Rupture is not excluded. 3. Severe chondromalacia patella with associated marrow edema as above. 4. There is significant marrow edema within the tibial spine and posterior plateau, possibly represen ting contusion versus degenerative change. There is no clear MRI evidence of fracture. 5. There is no oblique tear involving the body of the lateral meniscus. 6. Mucoid degeneration versus intrasubstance tearing of the medial meniscus. 7. There is fluid and edema identified along the iliotibial band. This is nonspecific and may be rela gustavo to surrounding edema. Iliotibial band syndrome would be impossible to exclude. 8. There is mild thickening and abnormal signal within the posterior cruciate ligament. The fibers ar e intact and this could represent age indeterminant injury. ACT 112: Negative or not required by law. Electronically signed by: Ray Giodrano M.D. 09/27/2019 9:17 PM
[2019-09-28] MEDS: FEXOFENADINE HCL 180 MG TAB PO SCH (09:07)
[2019-09-28] MEDS: LIDOCAINE 5% 1 PATCH TD SCH (09:08)
[2019-09-28] MEDS: TAMSULOSIN HCL 0.4 MG CAP PO SCH (09:08)
[2019-09-28] MEDS: MULTIVITAMIN TAB PO SCH (09:09)
[2019-09-28] MEDS: ASCORBIC ACID 500 MG TAB PO SCH (09:10)
[2019-09-28] MEDS: MONTELUKAST SODIUM 10 MG TABLET PO SCH (09:10)
[2019-09-28] MEDS: PANTOprazole 40 MG TAB PO SCH (09:10)
[2019-09-28] MEDS: CYANOCOBALAMIN 500 MCG TABLET (VITAMIN B-12) PO SCH (09:10)
[2019-09-28] MEDS: CHOLECALCIFEROL 1,000 UNITS 25 MCG TAB PO SCH (09:11)
--- NOTE | 2019-09-28 10:09 | Hospitalist Progress Note ---
Date of Service September 28, 2019 Assessment & Plan (1) Acute bilateral knee pain: Acute bilateral knee pain/bilateral knee effusions- Patient unable to walk due to severity of pain and swelling. No direct impact, sustained injury more from a twisting motion. Consulted ortho - appreciate input Consulted PT. Continue pain control MRI bilateral knees without fractures (2) Bilateral knee effusions: See above (3) Allergic rhinitis: Continue montelukast and fexofenadine (4) Vitamin B12 deficiency: Continue cyanocobalamin 1000 mcg daily Subjective Mr. Galo knees are improving, pain is under better control, swelling is decreasing. ROS Constitutional: no chills, aches, sweats or fever Respiratory: no sob,cough, sputum, or wheezing Cardiac: no chest pain, palpitations, edema, orthopnea or lightheadedness GI: no abdominal pain, nausea, vomiting, diarrhea or constipation : no dysuria or hesitancy Extremities: see HPI Skin: no rash All other systems reviewed and negative Physical Exam Physical Exam: General: no distress Eyes: normal inspection, PERLL Respiratory: chest non tender, clear to auscultation, normal breath sounds, no respiratory distress, no accessory muscle use Cardiac: regular rate and rhythm, no rub or gallop, no murmur, no edema, no jvd GI/: active bowel sounds, no abd pain or tenderness, soft, non distended Extremities: normal range of motion, normal strength, non tender Neuro/Psych: alert and oriented x 3, normal mood and affect Skin: normal color, dry Results & Data ([facility]) Vital Signs (Past 12 Hours) Vital Signs Temp Pulse Resp BP BP Pulse Ox 09/28/19 08:16 36.9 C 80 18 131/78 97 09/27/19 23:30 37.3 C 75 18 113/71 93 PG Care Time/CCT Total # of Minutes Spent Total Time Spent with Patient: Total time spent is greater than 50% in coordination of care (as documented) at patient's floor/unit and/or counseling patient: Coding Level of Care Code 61047 Subseq Hosp Care Lvl 2 Diagnoses Acute bilateral knee pain M25.561; M25.562 Bilateral knee effusions M25.461; M25.462 Allergic rhinitis J30.9 Vitamin B12 deficiency E53.8
--- NOTE | 2019-09-28 12:26 | Orthopedic Progress Note ---
Date of Service September 28, 2019 Assessment & Plan (1) Bilateral knee effusions: Patient pain improving, discussed MRI findings above with patient in detail. Due to history of tick bites we will test for Lyme and obtain uric acid level. Continue with conservative treatment at this time including Lidoderm patch. Knee immobilizer to right knee will need hinged knee brace at some point for MCL sprain. (2) Acute bilateral knee pain: (3) Osteoarthritis of knees, bilateral: Subjective Patient seen comfortably laying in bed, reports improvement in pain bilateral knees since admission, denies any fevers, chills, nausea, vomiting, shortness breath or chest pain. Denies history of gout, does admit to tick bites. Review of Systems Review of Systems: All systems reviewed & are unremarkable except as noted in HPI & below Constitutional: as per Subjective / HPI Physical Exam Physical Exam: LLE NVSI +EHL/FHL/TA/GS SILT grossly, +2 DP pulse, compartments soft NT, moderate effusion, no erythema, range of motion 0-120 with pain with extreme flexion RLE NVSI +EHL/FHL/TA/GS SILT grossly, +2 DP pulse, compartments soft NT, moderate effusion, no erythema, range of motion 0 to 100 degrees of flexion with pain with extreme flexion Constitutional: WD/WN, vitals as above Results & Data ([facility]) Vital Signs (Past 12 Hours) Vital Signs Temp Pulse Resp BP Pulse Ox 09/28/19 08:16 36.9 C 80 18 131/78 97 Diagnostic Findings MRI OF THE LEFT KNEE CLINICAL HISTORY: Left knee pain. COMPARISON STUDY: Radiographs of left knee dated 09/26/2019. TECHNIQUE: MRI of the left knee was performed utilizing proton density, T1, and T2-weighted sequences in the axial, sagittal, coronal planes. IV contrast was not administered for this examination. FINDINGS: Menisci: There is increased signal within the body and posterior horn of the medial meniscus, likely representing intrasubstance tearing. There is an oblique tear involving the body of the lateral meniscus.. Ligaments: The anterior cruciate ligament is intact. There is thickening and increased signal within the posterior cruciate ligament, which may age indeterminant remote injury. The fibers are intact. Suspect chronic grade 1 injury of the medial collateral ligament. The lateral collateral ligament complex appears intact. There is fluid seen tracking along the iliotibial band with surrounding soft tissue edema. Extensor mechanism: The extensor mechanism is intact. Hoffa's fat pad is normal in appearance. Articular cartilage and bone: There is no definite MRI evidence of fracture. There is severe chondromalacia patella, with extensive full thickness cartilage loss along the lateral patellar facet and milder loss along the medial facet with associated reactive marrow edema. There is also extensive cartilage loss along the lateral femoral trochlea with associated marrow edema. Marginal osteophytes are noted. There is mild thinning and fissuring of the articular cartilage along the weightbearing surface of the medial and lateral compartment. Marrow edema is noted within the tibial spine and posterior tibial plateau. Joint effusion: There is a moderate to large joint effusion. Soft tissues: There is significant edema within the popliteal fossa and around the knee joint. The musculature surrounding the knee joint is normal in bulk and signal intensity. A large popliteal cyst measures up to 5 cm. Mild soft tissue tissue edema is noted in the upper calf posteriorly with trace fluid tracking along the gastrocnemius musculature. IMPRESSION: 1. Moderate to large joint effusion. 2. Popliteal cyst. Rupture is not excluded. 3. Severe chondromalacia patella with associated marrow edema as above. 4. There is significant marrow edema within the tibial spine and posterior plateau, possibly representing contusion versus degenerative change. There is no clear MRI evidence of fracture. 5. There is no oblique tear involving the body of the lateral meniscus. 6. Mucoid degeneration versus intrasubstance tearing of the medial meniscus. 7. There is fluid and edema identified along the iliotibial band. This is nonspecific and may be related to surrounding edema. Iliotibial band syndrome would be impossible to exclude. 8. There is mild thickening and abnormal signal within the posterior cruciate ligament. The fibers are intact and this could represent age indeterminant injury. MRI OF THE RIGHT KNEE CLINICAL HISTORY: Right knee pain. Effusion. COMPARISON STUDY: Radiographs of the right knee dated 09/26/2019. TECHNIQUE: MRI of the right knee was performed utilizing proton density, T1, and T2-weighted sequences in the axial, sagittal, coronal planes. IV contrast was not administered for this examination. FINDINGS: Menisci: Increased signal within the posterior horn of both the medial and lateral meniscus could represent mucoid degeneration versus intrasubstance tear ing. Ligaments: The anterior and posterior cruciate ligaments are intact. There is evidence of grade 1 injury of the medial collateral alignment. This may be chronic. There is extensive fluid identified along the iliotibial band with surrounding soft tissue edema. There has also likely been age indeterminant tearing of the fibular collateral ligament. Extensor mechanism: The extensor mechanism is intact. Hoffa's fat pad is normal in appearance. Articular cartilage and bone: There is no MRI evidence of fracture. There is severe chondromalacia patella, with extensive and near complete cartilage loss along both the medial and lateral patellar facet. There is mild associated reactive marrow edema. There is also near complete cartilage loss along the lateral femoral trochlea. There are numerous foci of greater than 50% fissuring of the articular cartilage in both the medial and lateral compartments. There is bony spurring and cartilaginous irregularity along the medial aspect of the medi al femoral condyle. No full-thickness cartilage loss is identified in the medial and lateral compartments. Joint effusion: There is a large joint effusion. Soft tissues: The musculature surrounding the knee joint is normal in bulk and signal intensity. A popliteal cyst measures up to 5 cm. Soft tissue edema and fluid seen tracking inferiorly along the gastrocnemius musculature suggests rupture. IMPRESSION: 1. Large joint effusion. 2. Large popliteal cyst with evidence of rupture. 3. Severe chondromalacia patella as above with associated reactive marrow edema. 4. Milder arthritic change is seen in the medial and lateral compartments. 5. Suspect age indeterminant grade 1 injury of the medial collateral ligament as well as chronic injury of the fibular collateral ligament. 6. Fluid and edema are present along the iliotibial band. This is nonspecific and may be related to surrounding soft tissue edema. Iliotibial band syndrome of impossible to exclude. 7. There is increased signal within the posterior horns of the menisci. This could represent intrasubstance tearing versus mucoid degeneration. 8. The cruciate ligaments are intact. 9. Additional findings as above.
[2019-09-28 13:28] LABS: Lyme Ab IgG w/WB Rflx Negative (Negative); Lyme Ab IgM w/WB Rflx Negative (Negative)
--- NOTE | 2019-09-28 17:59 | Discharge Summary ---
Date of Service September 28, 2019 Admission HPI Per Admitting Provider The patient is a 69-year-old male with a past medical history including hyperlipidemia, obstructive sleep apnea, BPH, asthma, allergic rhinitis, GERD, kidney stones, status post lumbar discectomy. He presents to the emergency department with persistent left knee pain from 2/3, and now new right knee pain sustained earlier in the day today, both occur with chopping wood. His pain is severe to the point that he is not able to walk, even with a borrowed walker at home. Principal Diagnosis Bilateral knee effusions Discharge Exam Constitutional WD/WN, vitals as above Respiratory normal respiratory effort, lungs clear to auscultation Cardiovascular RRR, no murmur, no edema Gastrointestinal (Abdomen) Inspection/Auscultation: abdomen normal to inspection and normal bowel sounds; abdomen not distended Percussion/Palpation: abdomen soft; abdomen nontender Musculoskeletal no cyanosis or clubbing, extremities motor strength 5/5 bilateral knee effusions improving Skin no rashes, warm and dry Neurologic moves all extremities and awake Psychiatric A+Ox3, euthymic affect Discharge Data Allergies Allergy/AdvReac Type Severity Reaction Status Date / Time acetaminophen Allergy Unknown unkn Verified 09/26/19 14:16 carisoprodol Allergy Unknown UNKN Verified 09/26/19 14:16 codeine Allergy Unknown unkn Verified 09/26/19 14:16 erythromycin base Allergy Unknown unkn Verified 09/26/19 14:16 hydrocodone Allergy Unknown unkn Verified 09/26/19 14:16 levalbuterol Allergy Unknown UNKN Verified 09/26/19 14:16 meperidine Allergy Unknown UNKN Verified 09/26/19 14:16 Penicillins Allergy Unknown unkn Verified 09/26/19 14:16 pentazocine Allergy Unknown unkn Verified 09/26/19 14:16 tramadol [From Ultracet] Allergy Verified 09/26/19 14:16 Consultations 09/26/19 16:58 ED Decision to Admit Stat 09/26/19 21:01 ED Decision to Admit Stat 09/26/19 23:07 Consult Case Management - Discharge Planning Routine Consult Orthopedic Surgery Routine Ordered Studies 09/27/19 12:38 MR knee LT wo con Urgent MR knee RT wo con Urgent Hospital Course (1) Acute bilateral knee pain: Acute bilateral knee pain/bilateral knee effusions- Consulted ortho - right MCL sprain. Discussed patient's discharge with ortho - he is to baby his knees, especially the right, until he can get his hinged brace on Monday. He is not able to tolerate the immobilizer. Patient has a walker at home and will use if for ambulation. He feels he can walk up the three steps into his house. Consulted PT. Continue pain control - tylenol and lidoderm patches MRI bilateral knees without fractures (2) Bilateral knee effusions: See above (3) Allergic rhinitis: Continue montelukast and fexofenadine (4) Vitamin B12 deficiency: Continue cyanocobalamin 1000 mcg daily Total Time Total Time Spent Total Time Spent (In Minutes): greater than 30 minutes Discharge Plan Discharge Items Patient Disposition: Home - Self-Care Reason For Visit: SEVERE B/L KNEE PAIN/EFFUSIONS Discharge Diagnosis: Bilateral knee effusions, right knee MCL sprain Activity: Per Instructions section Driving/Machine Use: Do no drive until cleared to do so by PT or your doctor Non-emergency contact: Primary Care Provider Call non-emergency contact if: you have any medication questions, your symptoms worsen and you have a fever Follow-up/Referrals: Savanna Meza MD [Primary Care Provider] - Diet: Carb Consistent or DM2 Addtl Attending Provider Instructions: 1) Acute bilateral knee pain: - You can take Tylenol 1000 mg every 8 hours for pain. Do not exceed 3000 mg in 24 hours as this can harm your liver. You can also use lidoderm patches on your knees. - Limit your activity and wear the immobilizer as much as possible until you can get your hinged brace on Monday. Please call [facility] as listed below to arrange when to obtain the brace from their office. Use a walker to walk - Your Lyme screen was negative - Your MRI did not find any fractures. You do have a sprain in your right MCL - I have provided a script for you to obtain pt/ot evals from the therapist of your choice Addtl Safety Risk Lead Provider Instructions: Immobilizer to Right knee while ambulating , weightbearing as tolerated WBAT LLE. Ice to both knees after ambulation or exercise. Follow up with DR Hollins this week. Please call for an appointment. [phone] Pending Studies at Discharge: No Stand-Alone Forms: My [employer], Smoking Cessation Medications and DC Order Prescriptions: New lidocaine 5 % Adhesive Patch,Medicated 1 patch transdermal DAILY Qty: 14 RF: 0 Continued fexofenadine 180 mg tablet 180 mg PO QAM RF: 0 acetaminophen [Tylenol Extra Strength] 500 mg Tablet 500 mg PO Q6H PRN (Reason: Pain) RF: 0 cholecalciferol (vitamin D3) [Vitamin D3] 2,000 unit Tablet 2,000 unit PO QAM RF: 0 multivitamin [Multiple Vitamins] tablet 1 tab PO QAM RF: 0 cyanocobalamin (vitamin B-12) 1,000 mcg tablet 1,000 mcg PO QAM RF: 0 tamsulosin 0.4 mg capsule 0.4 mg PO QAM RF: 0 ascorbic acid (vitamin C) 250 mg tablet 250 mg PO QAM RF: 0 omeprazole 20 mg capsule,delayed release(DR/EC) 20 mg PO QAM RF: 0 montelukast 10 mg tablet 10 mg PO QAM RF: 0 Discharge Orders: Discharge Order (Routine); Ordered 09/28/19 Ordered By: Paloma Lucas Admission Data Admit Date/Time: 09/26/19 20:55 Attending Provider: Parvez Goetz Admit Provider: Tom Blackburn Primary Care Provider: Savanna Meza Other Providers: [facility] ; Chris Vega ; Elías Montez ; Parvez Goetz. Supervising Physician Co-Signing Physician Notes I supervised Paloma Lucas NP on this patient's care. I examined the patient today independently of her. I discussed the plan of care with her with the plan being as written in her note except for any following changes/exceptions: None. Doing well today. Knees are feeling better. Will get a brace on Monday and work with PT in [place]. Coding Level of Care Code D/C Day Management >30 mins Diagnoses Acute bilateral knee pain M25.561; M25.562 Bilateral knee effusions M25.461; M25.462 Allergic rhinitis J30.9 Vitamin B12 deficiency E53.8
== END 2019-09-28 19:06 | disposition home or self-care (01) ==
LOC: ED 12:09 → 3N 12:09 → SUATTDRO 20:55 → 3N 21:51